=== PATIENT | female | born 2000 | race Hispanic/Latino ===

== ENCOUNTER 2018-08-10 15:05 | Emergency (ER) | payer SELFPAY ==
[2018-08-10 15:11] VITALS: BP 130/88
--- NOTE | 2018-08-10 15:14 | Event Note ---
ED Screening Note Date of service: 08/10/18 Time: 15:10 ED Screening Note: This is a 17 y.o. F. that presents to the ER with laceration to left cheek 30 minutes [employer]. She is unsure if dog is UTD on vaccines. Tetanus not UTD. This initial assessment/diagnostic orders/clinical plan/treatment(s) is/are subject to change based on patients health status, clinical progression and re- assessment by fellow clinical providers in the ED. Further treatment and workup at subsequent clinical providers discretion. Patient/guardian urged not to elope from the ED as their condition may be serious if not clinically assessed and managed. Initial orders include: CT facial bones
[2018-08-10] MEDS ORDERED: BOOSTRIX IM ONE (15:15)
== END 2018-08-10 21:07 ==
LOC: ED 15:05
DX: S81.852A Open bite, left lower leg, initial encounter (principal); W54.0XXA Bitten by dog, initial encounter; Y93.89 Activity, other specified; Y92.89 Other specified places as the place of occurrence of the external cause; Y99.8 Other external cause status; Z53.21 Procedure and treatment not carried out due to patient leaving prior to being seen by health care provider

== ENCOUNTER 2020-06-28 14:27 | Emergency (ER) | payer SELFPAY | END 2020-06-28 15:30 | disposition left against medical advice (07) | LOC: ED 14:27 | DX: R41.82 Altered mental status, unspecified (principal); Z53.21 Procedure and treatment not carried out due to patient leaving prior to being seen by health care provider ==